=== PATIENT | female | born 1950 | race Caucasian/White ===

== ENCOUNTER 2021-03-14 07:03 | Emergency (ER) | payer MEDICARE, OTHER ==
[2021-03-14 07:10] VITALS: BP 159/77; PULSE 88; RESP 20; TEMP 97.8
--- NOTE | 2021-03-14 08:00 | ED ---
General Adult HPI - General Source: patient Mode of arrival: ambulatory Limitations: no limitations <Prince Taveras - Last Filed: 03/14/21 14:51> <Natalee Garcia - Last Filed: 03/15/21 15:40> - General Chief complaint: Recheck/Abnormal Lab/Rx Stated complaint: covid test Time Seen by Provider: 03/14/21 07:13 - History of Present Illness Initial comments: 70-year-old female presents to the emergency room for a coronavirus test. Patient reports she is trying to go to [place] to go to a . Patient denies any symptoms or exposures. Denies any complaints at this time including shortness of breath, chest pain, abdominal pain, nausea or vomiting, headache, or visual changes. (Prince Taveras) - Related Data Allergies Allergy/AdvReac Type Severity Reaction Status Date / Time propoxyphene [From Darvon] Allergy Anaphylaxis Verified 03/14/21 07:10 Review of Systems ROS Other: All systems not noted in ROS Statement are negative. <Prince Taveras - Last Filed: 03/14/21 14:51> ROS Other: All systems not noted in ROS Statement are negative. <Natalee Garcia - Last Filed: 03/15/21 15:40> ROS Statement: Those systems with pertinent positive or pertinent negative responses have been documented in the HPI. Past Medical History Past Medical History: GERD/Reflux, Osteoarthritis (OA) Past Surgical History: No Surgical Hx Reported Smoking Status: Never smoker Past Alcohol Use History: Occasional Past Drug Use History: None Reported <Prince Taveras - Last Filed: 03/14/21 14:51> General Exam Limitations: no limitations General appearance: alert, in no apparent distress Head exam: Present: atraumatic, normocephalic, normal inspection Eye exam: Present: normal appearance ENT exam: Present: normal exam, mucous membranes moist Neck exam: Present: normal inspection, full ROM. Absent: tenderness Respiratory exam: Present: normal lung sounds bilaterally. Absent: respiratory distress, wheezes Cardiovascular Exam: Present: regular rate, normal rhythm, normal heart sounds <Prince Taveras - Last Filed: 03/14/21 14:51> Course Vital Signs 03/14/21 07:07 Temperature 97.8 F Pulse Rate 88 Respiratory 20 Rate Blood Pressure 159/77 O2 Sat by Pulse 99 Oximetry Medical Decision Making <Prince Taveras - Last Filed: 03/14/21 14:51> <Natalee Garcia - Last Filed: 03/15/21 15:40> - Medical Decision Making Vitals are stable. Lab test was negative. Patient discharged home. (Prince Taveras) I was available for consultation in the emergency department. The history and physical exam were done by the midlevel provider. I was consulted for this patients care. I reviewed the case with the midlevel provider and based on their presentation of the patient, I agree with the assessment, medical decision making and plan of care as documented. Chart was dictated using [employer] dictation software. Attempts were made to correct any dictation errors however some typographical errors may persist. (Natalee Garcia) - Lab Data Lab Results 03/14/21 Range/Units 07:18 Coronavirus (PCR) Not Detected (Not Detectd) Disposition Is patient prescribed a controlled substance at d/c from ED?: No Time of Disposition: 08:00 <Prince Taveras - Last Filed: 03/14/21 14:51> <Natalee Garcia - Last Filed: 03/15/21 15:40> Clinical Impression: Lab test negative for COVID-19 virus Disposition: HOME SELF-CARE Condition: Good Instructions (If sedation given, give patient instructions): Coronavirus Disease 2019 (COVID-19) Referrals: None,Stated [Primary Care Provider] - 1-2 days
== END 2021-03-14 08:10 | disposition home or self-care (01) ==
LOC: EC 07:03
DX: Z20.822 Contact with and (suspected) exposure to COVID-19 (principal); Z88.8 Allergy status to other drugs, medicaments and biological substances
CPT/HCPCS: 87635; 99282